=== PATIENT | female | born 1955 | race Caucasian/White ===

== ENCOUNTER 2017-06-03 08:38 | Emergency (ER) | payer OTHER ==
--- NOTE | 2017-06-03 09:25 | ERPHSYRPT ---
- History of Present Illness Time Seen by Provider: 06/03/17 09:10 Source: patient Exam Limitations: no limitations Patient Subjective Stated Complaint: pt here for fast heart rate while driving in to work today. denies any pain, Triage Nursing Assessment: pt alert, resp easy, chest clear, no edema Physician History: The patient is a 61-year-old female complaining of a very high heart rate while driving to work this morning. She could feel her heart beating very rapidly and pounding. She was not short of breath nor did she have chest pain. She denies nausea or vomiting. Currently she does not feel her heart racing or pounding. She states that at one point while her heart was racing, she coughed several times. This episode lasted just a few minutes. She was not lightheaded. A similar episode occurred about one month ago that did not last very long. Her past medical history is significant for episodes of hyper thyroidism, thyroid ablation with iodine 131, now hypothyroidism, anxiety. Timing/Duration: today Severity: moderate Modifying Factors: Improves With: nothing Associated Symptoms: No nausea, No vomiting, No shortness of breath, No diaphoresis, No chest pain Allergies/Adverse Reactions: No Known Drug Allergies Allergy (Unverified 06/03/17 08:59) Home Medications: Alprazolam [Xanax 0.25 mg] 0.25 mg HS 06/03/17 [History] Levothyroxine Sodium [Synthroid] 137 mcg DAILY 06/03/17 [History] Paroxetine HCl [Paxil] 40 mg DAILY 06/03/17 [History] Hx Tetanus, Diphtheria Vaccination/Date Given: Yes Hx Influenza Vaccination/Date Given: Yes Hx Pneumococcal Vaccination/Date Given: No Immunizations Up to Date: Yes - Review of Systems Constitutional: No Fever, No Chills Eyes: No Symptoms Ears, Nose, & Throat: No Symptoms Respiratory: No Cough, No Dyspnea Cardiac: Palpitations Abdominal/Gastrointestinal: No Abdominal Pain, No Nausea, No Vomiting, No Diarrhea Genitourinary Symptoms: No Dysuria Musculoskeletal: No Back Pain, No Neck Pain Skin: No Rash Neurological: No Dizziness, No Focal Weakness, No Sensory Changes Psychological: No Symptoms Endocrine: No Symptoms Hematologic/Lymphatic: No Symptoms Immunological/Allergic: No Symptoms All Other Systems: Reviewed and Negative - Past Medical History Pertinent Past Medical History: Yes Endocrine Medical History: Hypothyroidism Psycho-Social History: Depression - Past Surgical History Past Surgical History: Yes Female Surgical History: Hysterectomy - Social History Smoking Status: Never smoker Exposure to second hand smoke: No Drug Use: none Patient Lives Alone: No - Female History Hx Last Menstrual Period: post Hx Now: No - Nursing Vital Signs Nursing Vital Signs: Initial Vital Signs Temperature 97.0 F 06/03/17 08:53 Pulse Rate 104 H 06/03/17 08:53 Respiratory Rate 16 06/03/17 08:53 Blood Pressure 199/97 06/03/17 08:53 O2 Sat by Pulse Oximetry 99 06/03/17 08:53 Pain Scale Pain Intensity 0 - Physical Exam General Appearance: no apparent distress, alert Eye Exam: PERRL/EOMI, eyes nml inspection Ears, Nose, Throat Exam: normal ENT inspection, TMs normal, pharynx normal, moist mucous membranes Neck Exam: normal inspection, non-tender, supple, full range of motion Respiratory Exam: normal breath sounds, lungs clear, No respiratory distress Cardiovascular Exam: regular rate/rhythm, normal heart sounds, normal peripheral pulses Gastrointestinal/Abdomen Exam: soft, normal bowel sounds, No tenderness, No mass Pelvic Exam: not done Rectal Exam: not done Back Exam: normal inspection Extremity Exam: normal inspection, normal range of motion, pelvis stable Neurologic Exam: alert, oriented x 3, cooperative, normal mood/affect, nml cerebellar function, nml station & gait, sensation nml, No motor deficits Skin Exam: normal color, warm, dry, No rash Lymphatic Exam: No adenopathy SpO2 Interpretation: normal SpO2: 99 Oxygen Delivery: Room Air - Course EKG Interpreted by Me: RATE, Sinus Tach, NORMAL AXIS, NORMAL INTERVALS, NORMAL QRS, NORMAL ST-T, Other (No change compared to EKG 08/08/13.) - Radiology Exams Chest X-ray Interpretation: Reviewed by me, Teleradiologist Report, Negative (per Dr Varner.) Ordered Tests: Active Orders 24 hr Category Date Time Status EKG-ER Only STAT Care 06/03/17 09:30 Active IV Insertion STAT Care 06/03/17 09:30 Active CHEST 2 VIEWS (PA AND LAT) Stat Exams 06/03/17 09:46 Completed CBC W DIFF Stat Lab 06/03/17 09:49 Completed CMP Stat Lab 06/03/17 09:49 Completed CULTURE,URINE Stat Lab 06/03/17 09:49 Received MAG [MAGNESIUM] Stat Lab 06/03/17 09:49 Completed TROPONIN Stat Lab 06/03/17 09:49 Completed TSH [TSH, 3RD Generation] Stat Lab 06/03/17 09:49 Completed UA W/ MICROSCOPIC Stat Lab 06/03/17 09:49 Completed Lab/Rad Data: Laboratory Result Diagrams 06/03/17 09:49 06/03/17 09:49 Laboratory Results 06/03/17 06/03/17 06/03/17 Range/Units 09:49 09:49 09:49 WBC 6.0 (4.0-10.5) K/mm3 RBC 4.23 (4.1-5.4) M/mm3 Hgb 13.3 (12.0-16.0) gm/dl Hct 40.0 (35-47) % MCV 94.6 (78-100) fl MCH 31.4 (26-32) pg MCHC 33.3 (32-36) g/dl RDW 12.9 (11.5-14.0) % Plt Count 250 (150-450) K/mm3 MPV 11.0 H (6-9.5) fl Gran % 52.7 (36.0-66.0) % Eos # (Auto) 0.13 (0-0.5) Absolute Lymphs (auto) 2.16 (1.0-4.6) Absolute Monos (auto) 0.52 (0.0-1.3) Lymphocytes % 36.1 (24.0-44.0) % Monocytes % 8.7 (0.0-12.0) % Eosinophils % 2.2 (0.00-5.0) % Basophils % 0.3 (0.0-0.4) % Absolute Granulocytes 3.16 (1.4-6.9) Basophils # 0.02 (0-0.4) Sodium 143 (137-145) mmol/L Potassium 3.9 (3.5-5.1) mmol/L Chloride 104 (98-107) mmol/L Carbon Dioxide 26 (22-30) mmol/L Anion Gap 17.1 H (5-15) MEQ/L BUN 13 (7-17) mg/dL Creatinine 0.67 (0.52-1.04) mg/dL Estimated GFR > 60 ML/MIN Glucose 141 H (74-106) mg/dL Calcium 9.6 (8.4-10.2) mg/dL Magnesium 1.9 (1.6-2.3) mg/dL Total Bilirubin 0.60 (0.2-1.3) mg/dL AST 30 (14-36) U/L ALT 19 (0-35) U/L Alkaline Phosphatase 110 (38-126) U/L Troponin I < 0.012 (0.000-0.034) ng/mL Serum Total Protein 7.1 (6.3-8.2) g/dL Albumin 4.4 (3.5-5.0) g/dL TSH 3rd Generation 1.350 (0.47-4.68) mIU/L Ur Collection Type Urine Color (YELLOW) Urine Appearance (CLEAR) Urine pH (5-6) Ur Specific [place] (1.005-1.025) Urine Protein (Negative) Urine Ketones (NEGATIVE) Urine Blood (0-5) Huy/ul Urine Nitrite (NEGATIVE) Urine Bilirubin (NEGATIVE) Urine Urobilinogen (0-1) mg/dL Ur Leukocyte Esterase (NEGATIVE) Urine Microscopic WBC (0-5) /HPF Ur Epithelial Cells (FEW) /HPF Urine Bacteria (NEGATIVE) /HPF Urine Mucus (NEGATIVE) /HPF Urine Culture Reflexed (NO) Urine Glucose (NEGATIVE) mg/dL Specimen Received 06/03/17 Range/Units 09:49 WBC (4.0-10.5) K/mm3 RBC (4.1-5.4) M/mm3 Hgb (12.0-16.0) gm/dl Hct (35-47) % MCV (78-100) fl MCH (26-32) pg MCHC (32-36) g/dl RDW (11.5-14.0) % Plt Count (150-450) K/mm3 MPV (6-9.5) fl Gran % (36.0-66.0) % Eos # (Auto) (0-0.5) Absolute Lymphs (auto) (1.0-4.6) Absolute Monos (auto) (0.0-1.3) Lymphocytes % (24.0-44.0) % Monocytes % (0.0-12.0) % Eosinophils % (0.00-5.0) % Basophils % (0.0-0.4) % Absolute Granulocytes (1.4-6.9) Basophils # (0-0.4) Sodium (137-145) mmol/L Potassium (3.5-5.1) mmol/L Chloride (98-107) mmol/L Carbon Dioxide (22-30) mmol/L Anion Gap (5-15) MEQ/L BUN (7-17) mg/dL Creatinine (0.52-1.04) mg/dL Estimated GFR ML/MIN Glucose (74-106) mg/dL Calcium (8.4-10.2) mg/dL Magnesium (1.6-2.3) mg/dL Total Bilirubin (0.2-1.3) mg/dL AST (14-36) U/L ALT (0-35) U/L Alkaline Phosphatase (38-126) U/L Troponin I (0.000-0.034) ng/mL Serum Total Protein (6.3-8.2) g/dL Albumin (3.5-5.0) g/dL TSH 3rd Generation (0.47-4.68) mIU/L Ur Collection Type VOID Urine Color YELLOW (YELLOW) Urine Appearance CLEAR (CLEAR) Urine pH 5.0 (5-6) Ur Specific [place] 1.020 (1.005-1.025) Urine Protein NEGATIVE (Negative) Urine Ketones NEGATIVE (NEGATIVE) Urine Blood 5-10 (0-5) Huy/ul Urine Nitrite NEGATIVE (NEGATIVE) Urine Bilirubin NEGATIVE (NEGATIVE) Urine Urobilinogen NORMAL (0-1) mg/dL Ur Leukocyte Esterase 1+ (NEGATIVE) Urine Microscopic WBC 2-5 (0-5) /HPF Ur Epithelial Cells FEW (FEW) /HPF Urine Bacteria FEW (NEGATIVE) /HPF Urine Mucus MANY (NEGATIVE) /HPF Urine Culture Reflexed YES (NO) Urine Glucose TRACE (NEGATIVE) mg/dL Specimen Received 06/03/17 0909 - Progress Progress: improved Counseled pt/family regarding: lab results, diagnosis, need for follow-up, rad results - Departure Time of Disposition: 10:55 Departure Disposition: Home Clinical Impression: Tachycardia Condition: Stable Critical Care Time: No Referrals: PHOEBE MARQUIS JR [Primary Care Provider] - Additional Instructions: You experienced a racing heart this morning. When you arrived in the ER, you had mild tachycardia. I believe you had an episode of SVT earlier in the day. Please follow-up with your primary medical doctor next week for further testing and evaluation. A Holter monitor placed at that time.
[2017-06-03 09:54] LABS: BASOPHIL % 0.3 % (0.0-0.4); Basophil (Absolute #) 0.02 (0-0.4); Eosinophil % 2.2 % (0.00-5.0); Eosinophil (Absolute #) 0.13 (0-0.5); Granulocyte Absolute (ANC) 3.16 (1.4-6.9); Granulocytes % 52.7 % (36.0-66.0); Hemoglobin 13.3 gm/dl (12.0-16.0); Lymphocyte (Absolute #) 2.16 (1.0-4.6); Lymphocytes % 36.1 % (24.0-44.0); Mean Cell Volume 94.6 fl (78-100); Mean Corpuscular Hemoglobin 31.4 pg (26-32); Mean Corpuscular Hgb Concent. 33.3 g/dl (32-36); Monocyte (Absolute #) 0.52 (0.0-1.3); Monocytes % 8.7 % (0.0-12.0); Platelet Count 250 K/mm3 (150-450); Red Blood Count 4.23 M/mm3 (4.1-5.4); Red Cell Distribution Width 12.9 % (11.5-14.0)
--- NOTE | 2017-06-03 09:56 | XRAY ---
Indication: Palpitations. Comparison: July 08, 2010. PA/lateral chest again hyperinflated and clear. Heart and mediastinal structures within normal limits. Bony thorax intact again with minimal degenerative changes and minimal scoliosis. Incidental mild pectus excavatum deformity and bilateral breast implants. Impression: Nonacute hyperinflated chest with chronic features.
[2017-06-03 09:59] LABS: Appearance CLEAR (CLEAR); Glucose TRACE mg/dL (NEGATIVE); Leukocyte Esterase 1+ (NEGATIVE); Nitrite NEGATIVE (NEGATIVE); Protein,Urine Dip NEGATIVE (Negative)
[2017-06-03 10:00] LABS: Bilirubin NEGATIVE (NEGATIVE); Ketones NEGATIVE (NEGATIVE); Urobilinogen NORMAL mg/dL (0-1)
[2017-06-03 10:03] LABS: ALBUMIN 4.4 g/dL (3.5-5.0); ALKALINE PHOSPHATASE 110 U/L (38-126); ANION GAP 17.1 MEQ/L (5-15); BLOOD UREA NITROGEN 13 mg/dL (7-17); CHLORIDE 104 mmol/L (98-107); Calcium 9.6 mg/dL (8.4-10.2); Carbon Dioxide 26 mmol/L (22-30); Creatinine 1 0.67 mg/dL (0.52-1.04); Glucose 141 mg/dL (74-106); Potassium 3.9 mmol/L (3.5-5.1); SGOT/AST 30 U/L (14-36); SGPT/ALT 19 U/L (0-35); SODIUM 143 mmol/L (137-145); Total Protein 7.1 g/dL (6.3-8.2)
[2017-06-03 10:13] LABS: Bacteria FEW /HPF (NEGATIVE); Epithelial Cells FEW /HPF (FEW); Mucus MANY /HPF (NEGATIVE)
[2017-06-03 10:32] LABS: TSH, 3RD Generation 1.35 mIU/L (0.47-4.68)
[2017-06-03 10:35] LABS: TROPONIN < 0.012 ng/mL (0.000-0.034)
[2017-06-03 10:45] VITALS: BP 153/65; PULSE 78
[2017-06-03 10:55] VITALS: O2SAT 99
== END 2017-06-03 11:03 | disposition home or self-care (01) ==
LOC: ED 08:38
DX: R00.0 Tachycardia, unspecified (principal); E03.9 Hypothyroidism, unspecified; F41.9 Anxiety disorder, unspecified; F32.9 Major depressive disorder, single episode, unspecified; Z79.899 Other long term (current) drug therapy
CPT/HCPCS: 36000; 36415; 71046; 80053; 81000; 83735; 84443; 84484; 85025; 87086; 93005; 99283